=== PATIENT | female | born 1950 | race Caucasian/White ===

== ENCOUNTER → 2016-05-15 | Outpatient (CLI) | payer OTHER ==
--- NOTE | 2016-05-15 12:07 | US ---
Ultrasound of the Abdomen Limited History: Chronic hepatitis C, prior cholecystectomy. Comparison: Ultrasound June 2012 Findings: Bilious system: Gallbladder surgically absent. Common bile duct is 3 mm in diameter which is normal. Liver: Homogeneous in echogenicity without definite focal lesions and measures 17 cm in length. Renal: Right kidney measures 9.6 x 6.1 x 5.2 cm without hydronephrosis. In the medial cortex of the right kidney there 2 ovoid hypoechoic possible lesions which appear new o ne measuring 1.9 x 1.9-1.1 cm and a second measuring 2.1 x 1.4 x 1.6 CM, both in the mid pole region. Pancreas: Homogeneous without peripancreatic fluid. Aorta: Visualized upper abdominal aorta demonstrates no aneurysm. Impression: 1. Mild hepatomegaly without hepatic masses, hepatomegaly, or ascites. 2. Prior cholecystectomy without biliary ductal dilation. 3. Questionable right renal masses measuring up to 2.1 cm. New since previous study. Recommend CT abd omen, renal protocol, for further evaluation.
== END ==
LOC: CIMAGING 10:49
PROVIDERS: ATTEND Internal Medicine
DX: N28.9 Disorder of kidney and ureter, unspecified (principal); B18.2 Chronic viral hepatitis C; Z90.49 Acquired absence of other specified parts of digestive tract
CPT/HCPCS: 76705-PO

== ENCOUNTER → 2016-05-29 | Outpatient (CLI) | payer OTHER ==
[~2016-05-29] MED LIST: IOPAMIDOL (ISOVUE 370) 100 ML BTL IV ONE
--- NOTE | 2016-05-29 17:02 | CT ---
CT Abdomen (Without and With Contrast) History: Possible right renal mass on recent ultrasound. COMPARISON: Ultrasound May 15, 2016. Technique: Spiral images were obtained through the abdomen without contrast for renal stone evaluati on. 90 mL of Isovue-300 IV contrast were administered. Multiphase was obtained through the abdomen wi thout compression. Images were reconstructed in multiple planes for CT urogram imaging. Volume rende ring was also performed. Dose reduction techniques were utilized. Findings: On the noncontrast images, there is no evidence of calculus projected over the kidneys or a long the expected path of the ureters. With IV contrast administration, there is evidence of renal cortical scarring involving both kidneys, especially the upper pole medial cortex of both kidneys with lobulated contour and cortical thinning . No evidence of renal masses or urinary tract obstruction. No perinephric fluid or nephrolithiasis. Proximal ureters demonstrate no distention or obstruction. Surgical clips in the gallbladder fossa from prior cholecystectomy. No biliary ductal dilation. In th e right lobe of the liver laterally, there is a benign-appearing 10-mm fat density lesion. No suspici ous solid hepatic lesions or hepatomegaly. No splenomegaly. Small hiatal hernia. No adrenal enlargeme nt. No aortic aneurysm or dissection. Moderate stool throughout the colon, consistent with constipation. No small bowel or colonic obstruct ion. No evidence of peripancreatic fluid. No significant adenopathy. Multilevel severe degenerative disk disease from T10-T11 through L5-S1 with degenerative anterolisthe sis at L4-L5 and multilevel moderate to severe facet arthropathy resulting in moderate to severe cent ral canal stenosis at L3-L4 and L4-L5. IMPRESSION: 1. Bilateral kidneys demonstrate multifocal cortical scarring in the upper pole regions, which corres pond to the previous ultrasound finding. No nephrolithiasis, solid renal masses, perinephric fluid, o r urinary tract obstruction. 2. Prior cholecystectomy. 3. Small hiatal hernia. 4. Benign fat density 1-cm hepatic lesion without suspicious hepatic masses. 5. Constipation. 6. Degenerative lumbar spine as described above.
== END ==
LOC: CIMAGING 15:13
PROVIDERS: ATTEND Internal Medicine
DX: N28.9 Disorder of kidney and ureter, unspecified (principal); K44.9 Diaphragmatic hernia without obstruction or gangrene
CPT/HCPCS: 74170-PO; Q9967

== ENCOUNTER 2016-06-05 13:31 | Day surgery (SDC) | payer OTHER ==
[2016-06-05] MEDS ORDERED: TRIAMCINOLONE ACETONIDE 200 MG/5 ML MDV IM ONE (15:22)
[2016-06-05] MEDS ORDERED: IOPAMIDOL (ISOVUE-M 300) 15 ML VIAL IV ONE (15:23)
--- NOTE | 2016-06-05 16:58 | IR ---
Lumbar epidural steroid injection History: Obesity, lumbar spondylosis, low back pain with radiculopathy down the right leg. The patien t has benefited from previous epidural injections, most recently performed March 20, 2016. Consent: Risks and benefits of the procedure were discussed in detail, and informed consent was obta ined. The patient accepted risks of lack of therapeutic benefit, internal bleeding, infection, and a ccidental dural puncture. Medications: Local anesthetic, only, at the preference of the patient (1% Xylocaine). Fluoroscopy time in minutes: 0.7. Estimated exposure in milligray: 63.1. Technique: With the patient prone, the low back was prepped and draped in sterile fashion. After loca l anesthetic, a long 18-gauge Touhy needle was inserted using right posterolateral oblique approach. The tip was advanced centrally using multiplanar fluoroscopic guidance. Epidural position of the tip of the needle was confirmed with 2 mL of Isovue-M 300. Spot images were obtained in multiple projecti ons before and following injection of 2 mL of Kenalog (80 mg) and 2.5 mL of preservative-free 1% Xylo elise. She tolerated the procedure well. After a brief observation here, the patient was allowed to l eave the hospital. Epidurogram: Eccentric rightward epidural contrast extends from L3 through L5. Features of chronic d isk degeneration and facet arthropathy are severe. Impression: Eccentric rightward lumbar epidural injection of long-acting steroid and rapid acting ane sthetic via L4-L5. - - - - - - - - - - - - - - - - - - - - - - - - - - - - - (PQRS measures: Current medications were listed in the medical record, including all known prescripti ons, [id number] medications, herbal medications, and nutritional supplements. Tobacco use: None . Prophylactic antibiotic:Unnecessary. VTE prophylaxis:Unnecessary.)
== END 2016-06-05 15:00 | disposition home or self-care (01) ==
LOC: FIMAGING 13:31
PROVIDERS: ATTEND Internal Medicine
PROC: 3E0S3BZ Introduction of Anesthetic Agent into Epidural Space, Percutaneous Approach (ICD-10-PCS; principal; 2016-06-05)
PROC: 3E0S329 Introduction of Other Anti-infective into Epidural Space, Percutaneous Approach (ICD-10-PCS; principal; 2016-06-05)
DX: M54.16 Radiculopathy, lumbar region (principal)
CPT/HCPCS: 0216T; 99152; J3301; Q9967

== ENCOUNTER → 2016-08-17 | Outpatient (CLI) | payer BC ==
[~2016-08-17] MED LIST changes: +DEPO METHYLPREDNISOLONE 40 MG/ML SDV ONE; +DEPO METHYLPREDNISOLONE 80 MG/ML SDV ONE; +LIDOCAINE 1% 30 ML SDV ONE; +NA BICARBONATE 50 MEQ/50 ML VIAL ONE; +ROPIVACAINE HCL 150 MG/30 ML INJ ONE
== END ==
LOC: FIMAGING 13:04
PROVIDERS: ATTEND Internal Medicine
PROC: 3E0U33Z Introduction of Anti-inflammatory into Joints, Percutaneous Approach (ICD-10-PCS; principal; 2016-08-17)
PROC: 3E0U3BZ Introduction of Anesthetic Agent into Joints, Percutaneous Approach (ICD-10-PCS; principal; 2016-08-17)
DX: M25.551 Pain in right hip (principal)
CPT/HCPCS: J1030; J1040; J2795; Q9967

== ENCOUNTER → 2017-04-03 | Day surgery (SDC) | payer OTHER ==
[~2017-04-03] MED LIST changes: -DEPO METHYLPREDNISOLONE 40 MG/ML SDV ONE; -DEPO METHYLPREDNISOLONE 80 MG/ML SDV ONE; -IOPAMIDOL (ISOVUE 370) 100 ML BTL IV ONE; +IOPAMIDOL (ISOVUE-M 300) 15 ML VIAL ONE; -LIDOCAINE 1% 30 ML SDV ONE; -NA BICARBONATE 50 MEQ/50 ML VIAL ONE; -ROPIVACAINE HCL 150 MG/30 ML INJ ONE; +TRIAMCINOLONE ACETONIDE 200 MG/5 ML MDV IM ONE
== END | disposition home or self-care (01) ==
LOC: FIMAGING 12:30
PROVIDERS: ATTEND Internal Medicine
DX: M54.16 Radiculopathy, lumbar region (principal); K44.9 Diaphragmatic hernia without obstruction or gangrene; Z96.659 Presence of unspecified artificial knee joint
CPT/HCPCS: J3301; Q9967

== ENCOUNTER 2017-09-11 12:02 | Day surgery (SDC) | payer OTHER ==
[2017-09-11] MEDS ORDERED: MEPERIDINE 25 MG/ML SYR IVP PRN (12:37)
[2017-09-11] MEDS ORDERED: FLUMAZENIL 0.5 MG/5 ML MDV IVP PRN (12:37)
[2017-09-11] MEDS ORDERED: NALOXONE HCL 0.4 MG/ML INJ IVP PRN (12:37)
[2017-09-11] MEDS ORDERED: MIDAZOLAM 2 MG/2 ML VIAL IVP PRN (12:37)
[2017-09-11] MEDS ORDERED: fentaNYL 100 MCG/2 ML INJ IVP PRN (12:37)
[2017-09-11] MEDS ORDERED: fentaNYL 100 MCG/2 ML INJ ONE (12:43)
[2017-09-11] MEDS ORDERED: FLUMAZENIL 0.5 MG/5 ML MDV IVP ONE (12:43)
[2017-09-11] MEDS ORDERED: MIDAZOLAM 2 MG/2 ML VIAL ONE (12:43)
[2017-09-11] MEDS ORDERED: NALOXONE HCL 0.4 MG/ML INJ ONE (12:43)
[2017-09-11] MEDS ORDERED: NS 1,000 ML IV SCH (12:45)
--- NOTE | 2017-09-11 14:13 | PDGENHP ---
History & Physical Chief Complaint: RECURRENT LBP History of Present Illness: SAME LOCATION, WORSENING DEGREE OF PAIN. Pertinent Past, Social, Family History: HEMORROIDECTOMY, BILATERAL TOTAL KNEE REPLACEMENT, GB, RT ANKLE. Relevant Physical Exam: BILATERAL LEG PAIN, R>L, LOWER BACK TO HIP, TO FRONT OF RT LEG DOWN TO FOOT. Cardiorespiratory Assessment: RRR, CTA
--- NOTE | 2017-09-11 14:14 | PDPROPOC ---
Sedation Plan of Care Sedation Plan of Care: vital signs stable, mental status noted, patient educated of risks, benefits, alternatives, patient can tolerate sedation ASA Classification: ASA 2 Planned drugs: fentanyl, midazolam Mallampati Score: Class 1 Mallampati Reference Image: Patient passed 3-3-2 rule?: Yes
[2017-09-11] MEDS ORDERED: IOPAMIDOL (ISOVUE-M 300) 15 ML VIAL ONE (14:41)
[2017-09-11] MEDS ORDERED: LIDOCAINE 1% 300 MG/30 ML SDV ONE (14:41)
[2017-09-11] MEDS ORDERED: TRIAMCINOLONE ACETONIDE 200 MG/5 ML MDV IM ONE (14:41)
[2017-09-11] MEDS ORDERED: ONDANSETRON 4 MG/2 ML VIAL IVP PRN (15:04)
--- NOTE | 2017-09-11 15:06 | PDRADPN ---
Radiology Procedure Note Date of Procedure: 09/11/17 Radiologist: Tia Smiley Anesthesia: IV Sedation Pre-op Diagnosis: back pain Post-op Diagnosis: same Indication: recurrent pain Procedure: L3-4 DACIA Inf/Abcess present in the surg proc area at time of surgery?: No Complications: none
[2017-09-11 16:18] VITALS: BP 121/69
== END 2017-09-11 16:15 | disposition home or self-care (01) ==
LOC: FIMAGING 12:02
PROVIDERS: ATTEND Physical Medicine & Rehabilitation
DX: M54.16 Radiculopathy, lumbar region (principal); Z96.653 Presence of artificial knee joint, bilateral
CPT/HCPCS: J2250; J2310; J3010; J3301; Q9967

== ENCOUNTER → 2017-10-03 | Outpatient (CLI) | payer OTHER | LOC: FIMAGING 14:20 | PROVIDERS: ATTEND Physical Medicine & Rehabilitation | DX: M51.36 Other intervertebral disc degeneration, lumbar region (principal); M43.16 Spondylolisthesis, lumbar region; M99.73 Connective tissue and disc stenosis of intervertebral foramina of lumbar region; M48.56XA Collapsed vertebra, not elsewhere classified, lumbar region, initial encounter for fracture ==

== ENCOUNTER 2017-10-08 22:31 | Inpatient (IN) | payer OTHER ==
[2017-10-08] MEDS ORDERED: ONDANSETRON 4 MG/2 ML VIAL IVP ONE (23:47)
--- NOTE | 2017-10-08 23:52 | EDPHY ---
General - History Smoking Status: Former smoker Time Seen by Provider: 10/08/17 23:48 Narrative: CHIEF COMPLAINT: Back pain HISTORY OF PRESENT ILLNESS: Patient presents with complaints of back pain. She reports lumbar back pain. This has been present for many years, but it acutely worsened laterally. She says that she has lumbar pain with radiating pain to the legs. This was primarily on the right side until Sunday. She was doing housework when "it got bad really quick." She refers to pain lumbar spine. She did not fall or strike her back. She now feels severe pain in the low back that is refractory to her hydrocodone medication. She has been unable to walk due to pain. She reports weakness in both legs. She reports tingling and numbness and "burning pain" down of both legs symmetrically to the ankles. She denies any saddle anesthesia. She denies incontinence of bowel or bladder as she denies retention of bowel or bladder. No fever. She denies IV drug use. She says her last epidural injection was several weeks ago. She was seen by a neurosurgeon today, Dr. Lira. She had a recent MRI lumbar spine on October 03. No other associated complaints or modifying factors. REVIEW OF SYSTEMS: Ten systems reviewed and are negative unless otherwise noted in the HPI PCP: Dr. Poole SPECIALISTS: Dr. Erickson, orthopedics Dr. Wright, NILSA PAST MEDICAL HISTORY: Lumbar stenosis, chronic back pain, arthritis, hypertension, cholecystitis PAST SURGICAL HISTORY: Bilateral knee replacements, left ankle surgery, cholecystectomy, tonsillectomy , hemorrhoidectomy SOCIAL HISTORY: Never smoker. No drug or alcohol use. Retired FAMILY HISTORY: Noncontributory EXAMINATION General Appearance: Alert, no distress. Lying supine. Well-developed well- nourished. Head: normocephalic, atraumatic Eyes: Pupils equal and round, no conjunctival pallor or injection ENT, Mouth: Mucous membranes moist Neck: Normal inspection, supple, non-tender Respiratory: Lungs are clear to auscultation Cardiovascular: Regular rate and rhythm. No murmur Gastrointestinal: Obese Abdomen is soft and nontender Back: Tenderness of the lumbar spine without any crepitus, deformity or fluctuance. Unable to range due to pain. Neurological: GCS 15. A&O, nonfocal, patellar reflexes symmetric at 2+. There is weakness of the knees and ankles symmetrically a 4-5. Sensory is symmetric in lower extremities with reported paresthesia on exam. Skin: Warm and dry, no rash. No petechiae or purpura Extremities: Nontender, no pedal edema Psychiatric: Mood and affect normal DIFFERENTIAL DIAGNOSES: Including but not limited to acute cord compression, cauda equina, severe lumbar stenosis, lumbar radiculopathy MDM: 11:50 p.m. Acute worsening of chronic lumbar pain with now bilateral lumbar radiculopathy that compressive paresthesia and mild weakness. I do not appreciate Anesthesia. I do not appreciate any evidence of acute cord compression, but she does have 4/5 weakness symmetric. While I feel that acute cord compression is unlikely in this patient, she does have a significant change in her symptoms over the weekend. This is after the most recent MRI. It is very soon to repeat the MRI, but given the timing of the symptoms, I feel this is necessary to rule out acute cord compression. I have discussed with Dr. Baig and he is in agreement with this plan. I have ordered pain medication laboratory studies as well. 12:15 a.m. At this time I have discussed the case further with Dr. Baig. He will assume care the patient. Please see his note for final disposition further care. SUPERVISION: Patient was evaluated and examined in conjunction with my secondary supervising physician as documented. We have both examined the patient. (Andrew Olvera) 0005 care assumed by me from AUTUMN Olvera pending MRI of the L-spine. 0145 MRI results show new bilateral insufficiency fractures of the sacral S2 right greater than left these are nondisplaced. No changes in the chronic L4-5 stenosis or old L3 compression fracture. These are interpreted by Dr. Baker. I have discussed with Dr. Deleon, he will consult on the patient in the hospital. I have also discussed with the hospitalist, Herbert. He will admit for pain control and neurosurgical consultation. (Saad Baig) - Objective Vital Signs: Initial Vital Signs Temperature (C) 36.5 C 10/08/17 22:37 Heart Rate 86 10/08/17 22:37 Respiratory Rate 18 10/08/17 22:37 Blood Pressure 154/91 H 10/08/17 22:37 O2 Sat (%) 93 10/08/17 22:37 O2 Delivery Mode Nasal Cannula O2 (L/minute) 2 Allergies/Adverse Reactions: No Known Allergies Allergy (Verified 10/08/17 22:41) Home Medications: Medication Instructions Recorded Omeprazole Magnesium [Prilosec Otc] 20 mg PO 09/30/12 GABAPENTIN 03/22/15 Lisinopril 03/22/15 Vicodin 5-300 mg Tablet 05/26/16 Acyclovir 03/30/17 Excedrin Tablet (*) 03/30/17 Flexeril 03/30/17 IBUPROFEN 03/30/17 Oxycontin 10/08/17 Laboratory Results: Laboratory Results 10/09/17 00:05 10/09/17 00:05 10/09/17 10/09/17 10/09/17 00:05 00:05 00:05 WBC 6.86 10^3/uL 10^3/uL (3.80-9.50) RBC 3.59 10^6/uL L 10^6/uL (4.18-5.33) Hgb 10.4 g/dL L g/dL (12.6-16.3) Hct 32.1 % L % (38.0-47.0) MCV 89.4 fL fL (81.5-99.8) MCH 29.0 pg pg (27.9-34.1) MCHC 32.4 g/dL g/dL (32.4-36.7) RDW 15.5 % H % (11.5-15.2) Plt Count 242 10^3/uL 10^3/uL (150-400) MPV 8.2 fL L fL (8.7-11.7) Neut % (Auto) 51.4 % % (39.3-74.2) Lymph % (Auto) 30.6 % % (15.0-45.0) Davison % (Auto) 9.2 % % (4.5-13.0) Eos % (Auto) 7.9 % H % (0.6-7.6) Baso % (Auto) 0.6 % % (0.3-1.7) Nucleat RBC Rel Count 0.0 % % (0.0-0.2) Absolute Neuts (auto) 3.53 10^3/uL 10^3/uL (1.70-6.50) Absolute Lymphs (auto) 2.10 10^3/uL 10^3/uL (1.00-3.00) Absolute Monos (auto) 0.63 10^3/uL 10^3/uL (0.30-0.80) Absolute Eos (auto) 0.54 10^3/uL H 10^3/uL (0.03-0.40) Absolute Basos (auto) 0.04 10^3/uL 10^3/uL (0.02-0.10) Absolute Nucleated RBC 0.00 10^3/uL 10^3/uL (0-0.01) Immature Gran % 0.3 % % (0.0-1.1) Immature Gran # 0.02 10^3/uL 10^3/uL (0.00-0.10) Sodium 132 mEq/L L mEq/L (135-145) Potassium 3.8 mEq/L mEq/L (3.3-5.0) Chloride 98 mEq/L mEq/L (97-110) Carbon Dioxide 23 mEq/l mEq/l (22-31) Anion Gap 11 mEq/L mEq/L (8-16) BUN 16 mg/dL mg/dL (7-23) Creatinine 0.6 mg/dL mg/dL (0.6-1.0) Estimated GFR > 60 Glucose 93 mg/dL mg/dL (70-100) Calcium 9.6 mg/dL mg/dL (8.5-10.4) 25-OH Vitamin D Total Pending Medications Given: Discontinued Medications Morphine Sulfate (Morphine) 4 mg IVP EDNOW ONE Stop: 10/08/17 23:48 Last Admin: 10/09/17 00:15 Dose: 4 mg Morphine Sulfate (Morphine) 4 mg IVP EDNOW ONE Stop: 10/09/17 01:58 Last Admin: 10/09/17 02:12 Dose: 4 mg Ondansetron HCl (Zofran) 4 mg IVP EDNOW ONE Stop: 10/08/17 23:48 Last Admin: 10/09/17 00:15 Dose: 4 mg Departure - Departure Disposition: [facility] Clinical Impression: Lumbar radiculopathy, acute, Lumbar degenerative disc disease, Sacral fracture Chronic lumbar pain Qualifiers: Back pain laterality: midline Sciatica presence: with sciatica Sciatica laterality: bilateral sciatica Qualified Code(s): M54.41 - Lumbago with sciatica , right side Lumbar stenosis Qualifiers: Neurogenic claudication status: unspecified Qualified Code(s): M48.061 - Spinal stenosis, lumbar region without neurogenic claudication Condition: Fair
[2017-10-09 00:18] LABS: PLATELET COUNT 242 10^3/uL (150-400)
[2017-10-09] MEDS ORDERED: ONDANSETRON 4 MG/2 ML VIAL IVP PRN (01:47)
[2017-10-09] MEDS ORDERED: ACETAMINOPHEN 325 MG TAB PO PRN (01:47)
[2017-10-09] MEDS ORDERED: ONDANSETRON DISINTEGRATING 4 MG TAB PO PRN (01:47)
[2017-10-09] MEDS ORDERED: OXYCODONE/APAP 5/325 TAB PO ONE (01:48)
--- NOTE | 2017-10-09 02:18 | PDGENHP ---
History and Physical - Chief Complaint Back pain - History of Present Illness 67 yo F w/ chronic pain, fibromyalgia, and HTN presents with acute on chronic back pain. Patient states she has had pain above baseline since last . Then, last evening after waking up from a nap, the pain increased drastically. The pain is so severe she has difficulty walking. She notes radiation down bilateral legs to her ankles with burning and mild numbness involved. She denies federico weakness or loss of karishma/bladder control. Her pain is currently improved after morphine IV provided in the ED. CT scan in ED revealed sacral insufficiency fractures. History Information - Allergies/Home Medication List Allergies/Adverse Reactions: No Known Allergies Allergy (Verified 10/08/17 22:41) Home Medications: Omeprazole Magnesium [Prilosec Otc] 20 mg PO 09/30/12 [Last Taken 09/10/17] GABAPENTIN 03/22/15 [Last Taken 09/11/17] Lisinopril 03/22/15 [Last Taken 09/10/17] Vicodin 5-300 mg Tablet 05/26/16 [Last Taken 09/11/17] Acyclovir 03/30/17 [Last Taken 08/12/17] Excedrin Tablet (*) 03/30/17 [Last Taken 09/11/17] Flexeril 03/30/17 [Last Taken 09/10/17] IBUPROFEN 03/30/17 [Last Taken 09/11/17] Oxycontin 10/08/17 [Last Taken Unknown] I have personally reviewed and updated: family history, medical history - Past Medical History fibromyalgia, hypertension Additional medical history: Chronic pain - Surgical History Additional surgical history: Bilateral TKAs - Family History Positive for: cancer - Social History Smoking Status: Former smoker Review of Systems Review of Systems: ROS: 10pt was reviewed & negative except for what was stated in HPI & below Physical Exam Physical Exam: Temp Pulse Resp BP Pulse Ox 36.5 C 90 16 145/92 H 98 10/08/17 22:37 10/09/17 00:32 10/09/17 00:32 10/09/17 00:32 10/09/17 00:32 Constitutional: obese, uncomfortable Eyes: PERRL, EOMI Ears, Nose, Mouth, Throat: moist mucous membranes, no oral mucosal ulcers Cardiovascular: regular rate and rhythym, no murmur, rub, or gallop Respiratory: no respiratory distress, clear to auscultation Gastrointestinal: normoactive bowel sounds, soft, non-tender abdomen Skin: warm, normal color Musculoskeletal: full muscle strength, no muscle tenderness Neurologic: AAOx3, CN II-XII Intact, No weakness Psychiatric: interacting appropriately, not anxious Lab Data & Imaging Review 10/09/17 00:05 10/09/17 00:05 WBC 6.86 10^3/uL (3.80-9.50) 10/09/17 00:05 RBC 3.59 10^6/uL (4.18-5.33) L 10/09/17 00:05 Hgb 10.4 g/dL (12.6-16.3) L 10/09/17 00:05 Hct 32.1 % (38.0-47.0) L 10/09/17 00:05 MCV 89.4 fL (81.5-99.8) 10/09/17 00:05 MCH 29.0 pg (27.9-34.1) 10/09/17 00:05 MCHC 32.4 g/dL (32.4-36.7) 10/09/17 00:05 RDW 15.5 % (11.5-15.2) H 10/09/17 00:05 Plt Count 242 10^3/uL (150-400) 10/09/17 00:05 MPV 8.2 fL (8.7-11.7) L 10/09/17 00:05 Neut % (Auto) 51.4 % (39.3-74.2) 10/09/17 00:05 Lymph % (Auto) 30.6 % (15.0-45.0) 10/09/17 00:05 [place] % (Auto) 9.2 % (4.5-13.0) 10/09/17 00:05 Eos % (Auto) 7.9 % (0.6-7.6) H 10/09/17 00:05 Baso % (Auto) 0.6 % (0.3-1.7) 10/09/17 00:05 Nucleat RBC Rel Count 0.0 % (0.0-0.2) 10/09/17 00:05 Absolute Neuts (auto) 3.53 10^3/uL (1.70-6.50) 10/09/17 00:05 Absolute Lymphs (auto) 2.10 10^3/uL (1.00-3.00) 10/09/17 00:05 Absolute Monos (auto) 0.63 10^3/uL (0.30-0.80) 10/09/17 00:05 Absolute Eos (auto) 0.54 10^3/uL (0.03-0.40) H 10/09/17 00:05 Absolute Basos (auto) 0.04 10^3/uL (0.02-0.10) 10/09/17 00:05 Absolute Nucleated RBC 0.00 10^3/uL (0-0.01) 10/09/17 00:05 Immature Gran % 0.3 % (0.0-1.1) 10/09/17 00:05 Immature Gran # 0.02 10^3/uL (0.00-0.10) 10/09/17 00:05 Sodium 132 mEq/L (135-145) L 10/09/17 00:05 Potassium 3.8 mEq/L (3.3-5.0) 10/09/17 00:05 Chloride 98 mEq/L (97-110) 10/09/17 00:05 Carbon Dioxide 23 mEq/l (22-31) 10/09/17 00:05 Anion Gap 11 mEq/L (8-16) 10/09/17 00:05 BUN 16 mg/dL (7-23) 10/09/17 00:05 Creatinine 0.6 mg/dL (0.6-1.0) 10/09/17 00:05 Estimated GFR > 60 10/09/17 00:05 Glucose 93 mg/dL (70-100) 10/09/17 00:05 Calcium 9.6 mg/dL (8.5-10.4) 10/09/17 00:05 Imaging Review: MRI lumbar spine Prelim: bilat insuff fx sacrum s2 new, ? suble fx l ilium at si multil level deg same from recent Dr Baig 0135 Assessment & Plan Assessment: 67 yo F w/ chronic pain, FM, and HTN presents with acute on chronic back pain. Plan: 1. Acute on chronic back pain with chronic opiate use - Patient reports increased pain over last several days with dramatic increase on day of admission. MRI reveals new sacral insufficiency fractures of unclear etiology; patient denies trauma. At baseline she uses hydrocodone/APAP 20/650 q4-6h, gabapentin 600 q4-6h, and oxycontin 15 mg qHS (She has not had this for the last 2 weeks). - Admit for pain control - morphine IV PRN overnight for acute pain control - Needs med reconciliation - Neurosurgery consulted, appreciate assistance - May benefit from IR consult as well - Will check Vitamin D; last DEXA in 2012 notable for osteopenia, would recommend repeat as outpatient - Case discussed with Dr. Baig 2. HTN - Continue home meds Diet - Regular Code - Full Ppx - SCDs Dispo - Admit under observation status
[2017-10-09] MEDS ORDERED: MELATONIN 3 MG TAB PO PRN (02:25)
[2017-10-09] MEDS ORDERED: GABAPENTIN 300 MG CAP PO PRN (02:25)
[2017-10-09] MEDS: oxyCODONE IR 5 MG TAB PO PRN ×4 (04:49→17:35)
--- NOTE | 2017-10-09 08:22 | GCON ---
[f rep st] CONSULTATION CONSULTATION HISTORY AND PHYSICAL Patient seen in room [address] Kilpatrick at 6 a.m., seen by myself at 7:15 a.m. CHIEF COMPLAINT: Back pain. HISTORY OF PRESENT ILLNESS: The patient is a 67-year-old female with a history of chronic pain, fibromyalgia, and hypertension that presented to the emergency department with acute on chronic back pain. She had imaging done, which showed stenosis at L4-5. She has had a history of multiple injections at this level. She had imaging also that showed an S2 sacral insufficiency fracture. The patient states that she had the pain above her baseline since this last . Last evening, she was waking up from a nap. The pain had increased dramatically. The pain was so severe that she had difficulty with walking. She noted pain radiating down both legs to her ankles with some burning and mild numbness involved. She denies any loss of bowel or bladder control. No numbness in her groin. No saddle anesthesia. No changes in her bowel or bladder. She denies any upper extremity complaints. No shortness of breath. No chest pain. No abdominal complaints. No nausea, vomiting, or diarrhea. PAST MEDICAL HISTORY: Fibromyalgia, hypertension, chronic pain. PAST SURGICAL HISTORY: Bilateral total knee arthroplasties. MEDICATIONS: Prior to admission, omeprazole, gabapentin, lisinopril, Vicodin, acyclovir, Excedrin, Flexeril, ibuprofen, and OxyContin. ALLERGIES: No known drug allergies. FAMILY HISTORY: Positive for cancer. SOCIAL HISTORY: Patient is a former smoker. She is , lives in the [place] area. IMMUNIZATIONS: Up to date. TRAVEL: No recent travel. REVIEW OF SYSTEMS: Complete 10-point review of systems was reviewed and otherwise noted in HPI. PHYSICAL EXAMINATION: GENERAL: This is an awake, alert, oriented female. VITAL SIGNS: Most recent, blood pressure 139/94 with a MAP of 109, 99 heart rate, 17 respiratory rate, 96% on 2 L nasal cannula, temperature 37.1. HEENT: Head is normocephalic, atraumatic. Pupils are equal, round, reactive to light. EOMI is intact. Full visual camp by confrontation. Ears are patent. Nose is patent. NECK: Soft and supple midline tenderness. Full range of motion in flexion, extension, lateral bending, rotation. RESPIRATORY AND CARDIAC: Deferred. ABDOMEN: Soft, nontender. No peritoneal signs. AND RECTAL: Deferred. NEURO: Patient is awake, alert, oriented to name, place, location, date, time, and situation. Memory is intact to immediate, past, and current events. SPEECH: No aphasia, dysarthria, dysphonia. Cranial nerves 2-12 grossly intact. MOTOR: Patient has 5/5 strength in all muscle groups of bilateral upper and lower extremities to include deltoids, biceps, triceps, brachioradialis, wrist flexion, extensors, cap coverer, intrinsic fingers, iliopsoas, quadriceps, hamstring, plantar flexion, dorsiflexion, EHL testing with the exception of bilateral quad and hamstring at 5-/5 with poor effort due to pain. Sensation is grossly intact to light touch throughout all dermatome distributions of the lower extremities. Negative straight leg raise. Negative RACHEL test. Reflexes of biceps, triceps, brachioradialis, knee jerk and ankle jerk 2+/4. Toes are downgoing bilaterally. Bach's negative. Babinski negative. No evidence of clonus. MEDICAL DECISION MAKING, DIAGNOSTIC STUDIES, LABORATORY TESTS: Labs obtained on 10/09/2017 shows a white count of 6.86 with an H and H of 10.4 and 32.1 with a platelet count of 242. Chemistries on 10/09/2017, sodium 132, potassium 3.8, chloride 98, CO2 23, BUN 16, creatinine 0.6, and glucose of 93. MRI of the lumbar spine dated 10/09/2017 at 00:54 a.m. shows a bilateral insufficiency fracture of S2, subtle fracture left ilium, multiple-level degenerative disK changes noted. Patient does have some stenosis noted at the L4-5 level as well. IMPRESSION: 1. Back pain. 2. History of chronic pain with fibromyalgia. 3. Bilateral sacral insufficiency fracture S2, L4-5 stenosis. PLAN AND DISCUSSION: The patient is a 67-year-old female who has a history of chronic pain. She has known stenosis at L4-5 that she states she has had multiple injections to this area. She developed some acute lower back pain. Imaging was performed, which showed bilateral S2 sacral insufficiency fractures noted. She has continued stenosis at L4-5. She has had these injections in the back that have not given her lasting relief. She did have discussion with Dr. Lira earlier this week regarding the stenosis at L4-5. In the interim, she developed this worsening pain. She was seen both by myself and Dr. Kilpatrick this a.m. and recommendations for S2 sacral plasty with IR was given. The patient is in agreement with this. She may need further evaluation. She does have bilateral hip pain and she requested bilateral hip injections as well. We will defer this to Internal Medicine and orthopedics for evaluation. The patient did state that she works with Dr. Cadena. She could see Dr. Cadena for these in order for these hip injections as well. She is in agreement that the sacral plasty is primary at this time. We will order this with Interventional Radiology and follow up with her after this is completed. All questions and concerns were answered. Patient understands and agrees. NEUROSURGERY STAFF: I have seen and evaluated the patient and I agree with the above note by the PA. Hermilo Kilpatrick MD /[id number]/MODL MTDD
[2017-10-09] MEDS ORDERED: NON-FORMULARY NEW DRUG (Acyclovir [Acyclovir] 800 MG) PO PRN (09:50)
--- NOTE | 2017-10-09 09:52 | HOSPPROG ---
Hospitalist Progress Note Assessment/Plan: 67 yo F w/ chronic pain, FM, and HTN presents with acute on chronic back pain. Today is my first encounter w the patient, chart reviewed. * Acute on chronic back pain -due to sacral insufficiency fractures -patient did not sustain a fall -appreciate neurosurgery seeing her -last DEXA scan show osteopenia in 2012/ recommend a repeat one for f/u care -she has stenosis at L4-L5 contributing to her pain *sacral insufficiency fx -sacro-plasty was to be today, but now scheduled for tomorrow -will make NPO after midnight * HTN - Continue home meds *Plan: patient will require sacroplasty to help manage her pain which will be done tomorrow. She will require another midnight stay for further evaluation and treatment. She is unable to walk without assistance. Subjective: Tanika has no pain while at rest. Has increase pain with sitting and walking. Objective: Vital Signs Temp Pulse Resp BP Pulse Ox 37.1 C 99 17 139/94 H 96 10/09/17 03:10 10/09/17 03:10 10/09/17 03:10 10/09/17 03:10 10/09/17 03:10 10/08/17 10/09/17 10/10/17 05:59 05:59 05:59 Intake Total 150 Output Total 400 Balance -250 - Physical Exam Constitutional: appears nourished, uncomfortable Eyes: PERRL Ears, Nose, Mouth, Throat: hearing normal Cardiovascular: regular rate and rhythym Respiratory: no respiratory distress Gastrointestinal: normoactive bowel sounds Skin: warm Musculoskeletal: generalized weakness Neurologic: AAOx3 Psychiatric: interacting appropriately ICD10 Worksheet Patient Problems: Problems Problem Status Onset Chronic lumbar pain Acute Lumbar degenerative disc disease Acute Lumbar radiculopathy, acute Acute Lumbar stenosis Acute Sacral fracture Acute
[2017-10-09] MEDS ORDERED: ACYCLOVIR 400 MG TAB PO PRN (09:57)
[2017-10-09] MEDS ORDERED: NS 500 ML IV SCH (10:30)
[2017-10-09 10:51] LABS: INR 1.07 (0.83-1.16); PROTIME(PATIENT) 14.1 SEC (12.0-15.0)
[2017-10-09] MEDS: GABAPENTIN 300 MG CAP PO SCH ×3 (11:45→20:55)
--- NOTE | 2017-10-09 12:37 | ASMTCMCOM ---
CM Note CM Note Notes: Patient admitted for acute on chronic back pain with chronic opiate use. She has been seen by neurosurgery who recommend a S2 sacralplasty with IR. NS will see her again after this procedure. Patient lives independently. We can have PT/OT eval if necessary, and Case Management will assist with any discharge needs. Date Signed: 10/09/2017 12:36 PM Electronically Signed By:Jovita Redman RN
[2017-10-09] MEDS: LISINOPRIL/HCTZ 10/12.5 MG 1 EA TAB PO SCH (20:58)
[2017-10-09] MEDS: PANTOPRAZOLE SODIUM 40 MG TAB PO SCH (20:59)
[2017-10-09] MEDS ORDERED: NON-FORMULARY NEW DRUG (Omeprazole Magnesium [Prilosec Otc] 20 MG) PO SCH (21:00)
[2017-10-09] MEDS ORDERED: oxyCODONE CR 15 MG TAB PO SCH (21:00)
[2017-10-10] MEDS: oxyCODONE IR 5 MG TAB PO PRN ×3 (00:42→12:33)
[2017-10-10] MEDS: GABAPENTIN 300 MG CAP PO SCH ×4 (05:45→21:46)
[2017-10-10] MEDS ORDERED: PROPOFOL 200 MG/20 ML VIAL ONE (06:37)
[2017-10-10] MEDS ORDERED: PROPOFOL/EMULSION 500 MG/50 ML BOTTLE IV ONE (06:37)
[2017-10-10] MEDS ORDERED: SUCCINYLCHOLINE CHLORIDE 200 MG/10 ML VIAL ONE (06:46)
[2017-10-10] MEDS ORDERED: ROCURONIUM 100 MG/10 ML VIAL ONE (06:46)
--- NOTE | 2017-10-10 07:16 | NEUSURGPN ---
Assessment/Plan: Assessment: 67 yo female with lower back pain and BLE pain. Pt has bilateral S2 sacral insuff fractures Plan: -sacral insuff fractures: plan for IR to do sacroplasty today -pt ready for procedure -pt with L4/5 stenosis as well -PT/OT ordered-CPM -continue with current pain management -warning signs given -call with any questions or concerns -pt understands and agrees Subjective: Awake and alert. NAD. NPO now. Pt to go get IR procedure today. No marley/neck/ chest/abd or gu complaints. No f/c/n/v/d Objective: AAO x 3, PERRLA/EOMI no droop CN 2-12 grossly intact +lt touch 5/5 BUE/BLE = Neuro Check Frequency: per routine Urinary Catheter in Place: No - Physician Discussed Patient with : [facility] Physical Exam - Vitals, I&O, Labs I and O 10/09/17 10/10/17 10/11/17 05:59 05:59 05:59 Intake Total 150 Output Total 400 850 Balance -250 -850 Weight 94.1 kg Intake: Oral (ml) 150 Output: Urine (ml) 400 850 Bedside Commode 550 Toilet 400 300 Other: Number of Voids 3 Bedside Commode 4 Toilet 1 1 Vital Signs Temp Pulse Resp BP Pulse Ox 36.5 C 80 17 128/82 H 98 10/10/17 00:00 10/10/17 00:00 10/10/17 00:00 10/10/17 00:00 10/10/17 00:00 ICD10 Worksheet Patient Problems: Problems Problem Status Onset Chronic lumbar pain Acute Lumbar degenerative disc disease Acute Lumbar radiculopathy, acute Acute Lumbar stenosis Acute Sacral fracture Acute
[2017-10-10] MEDS ORDERED: DEXAMETHASONE 10 MG/ML VIAL IVP ONE (08:30)
[2017-10-10] MEDS ORDERED: ceFAZolin 2 GM/SWFI 2 GM/20 ML SYR IVP ONE (08:30)
[2017-10-10] MEDS ORDERED: ceFAZolin 2 GM/DEXTROSE 100 ML IV ONE (08:30)
--- NOTE | 2017-10-10 08:54 | PDANEPAE ---
ANE Past Medical History - Cardiovascular History Hx Hypertension: Yes Hx Arrhythmias: No Hx Chest Pain: No Hx Coronary Artery / Peripheral Vascular Disease: No Hx CHF / Valvular Disease: No Hx Palpitations: No - Pulmonary History Hx COPD: No Hx Asthma/Reactive Airway Disease: No Hx Recent Upper Respiratory Infection: No Hx Oxygen in Use at Home: No Hx Sleep Apnea: No Sleep Apnea Screening Result - Last Documented: Positive - Neurologic History Hx Cerebrovascular Accident: No Hx Seizures: No Hx Dementia: No Neurologic History Comment: NEUROPATHY lower legs and fingers - Endocrine History Hx Diabetes: Yes - Renal History Hx Renal Disorders: No - Liver History Hx Hepatic Disorders: No Hepatic History Comment: mild scaring past hepatitis - Neurological & Psychiatric Hx Hx Neurological and Psychiatric Disorders: No - Cancer History Hx Cancer: No - Congenital Disorder History Hx Congenital Disorders: No - GI History Hx Gastrointestinal Disorders: Yes Gastrointestinal History Comment: GERD, hiatial hernia (no surgery) - Other Health History Other Health History: L -EPIs, FIBROMYALGIA, SPINAL STENOSIS, - Chronic Pain History Chronic Pain: Yes - Surgical History Prior Surgeries: HEMORROIDECTOMY, bilateral total knee replacement, gall bladder surgery, right ankle fracture, tonsils ANE Review of Systems Review of Systems: ANE Patient History - Allergies Allergies/Adverse Reactions: No Known Allergies Allergy (Verified 10/08/17 22:41) - Home Medications Home Medications: Omeprazole Magnesium [Prilosec Otc] 20 mg PO HS 09/30/12 [Last Taken 10/07/17] Gabapentin [Neurontin 300 MG (*)] 600 mg PO QID 03/22/15 [Last Taken 10/08/17 18 :00] Lisinopril/Hctz 10/12.5 mg [Zestoretic/Prinzide 10/12.5MG (*)] 1 ea PO HS [Last Taken 10/07/17] HYDROcodone/APAP 10/325 [[place] 10/325 (*)] 2 tab PO Q4-6PRN PRN 05/26/16 [Last Taken 10/08/17 18:00] Acetaminophen/ASA/Caffeine [Excedrin Tablet (*)] 1 each PO DAILY PRN 03/30/17 [ Last Taken 09/11/17] Acyclovir 800 mg PO DAILY PRN 03/30/17 [Last Taken 08/12/17] Cyclobenzaprine [Flexeril 10 MG (*)] 10 mg PO TID PRN 03/30/17 [Last Taken 09/10] Ibuprofen [Motrin (*)] 800 mg PO BID 03/30/17 [Last Taken 10/08/17 09:00] oxyCODONE CR [Oxycontin] 15 mg PO HS 10/08/17 [Last Taken 10/07/17] Cholecalciferol Vit D3 [Vitamin D3 (*)] 1,000 units PO DAILY 10/09/17 [Last Taken Unknown] Ferrous Sulfate [Ferrous Sulf 325 MG (*)] 325 mg PO DAILY 10/09/17 [Last Taken Unknown] Multivitamins [Multivitamin (*)] 1 each PO DAILY 10/09/17 [Last Taken Unknown] - NPO status NPO Since - Liquids (Date): 10/09/17 NPO Since - Liquids (Time): 23:55 NPO Since - Solids (Date): 10/09/17 NPO Since - Solids (Time): 19:00 - Smoking Hx Smoking Status: Former smoker - Family Anes Hx Family Hx Anesthesia Complications: none ANE Labs/Vital Signs - Labs Result Diagrams: 10/09/17 00:05 10/09/17 00:05 - Vital Signs Blood Pressure: 125/85 Heart Rate: 76 Respiratory Rate: 16 O2 Sat (%): 90 Height: 167.64 cm Weight: 94.1 kg ANE Physical Exam - Airway Mallampati Score: Class 2 - ASA Status ASA Status: III ANE Anesthesia Plan Anesthesia Plan: general endotracheal anesthesia, MAC
[2017-10-10] MEDS ORDERED: MIDAZOLAM 2 MG/2 ML VIAL ONE (08:57)
[2017-10-10] MEDS ORDERED: fentaNYL 100 MCG/2 ML INJ ONE (08:58)
--- NOTE | 2017-10-10 09:00 | HOSPPROG ---
Hospitalist Progress Note Assessment/Plan: 67 yo F w/ chronic pain, FM, and HTN presents with acute on chronic back pain. * Acute on chronic back pain -due to sacral insufficiency fractures -patient did not sustain a fall -appreciate neurosurgery seeing her -last DEXA scan show osteopenia in 2012/ recommend a repeat one for f/u care -she has stenosis at L4-L5 contributing to her pain *sacral insufficiency fx -sacro-plasty this morning & patient is feeling much better, saw her prior to her procedure and after. She was able to ambulate with assist * HTN - Continue home meds *Plan: Evaluate her tomorrow, she wants to go home. Lives alone and has cats she wants to return to. Will dc iv pain medications, resume her home medications , will stop long acting pain med since she stopped it 2 weeks ago. Will ask PT and OT to see. Subjective: Alysa is feeling much better after the procedure. Very hopeful. Objective: Vital Signs Temp Pulse Resp BP Pulse Ox 37.0 C 76 16 125/85 H 90 L 10/10/17 08:36 10/10/17 08:53 10/10/17 08:53 10/10/17 08:53 10/10/17 08:53 10/09/17 10/10/17 10/11/17 05:59 05:59 05:59 Intake Total 150 Output Total 400 850 Balance -250 -850 PT 14.1 SEC (12.0-15.0) 10/09/17 10:30 INR 1.07 (0.83-1.16) 10/09/17 10:30 - Physical Exam Constitutional: appears nourished, not in pain, obese Eyes: PERRL Ears, Nose, Mouth, Throat: hearing normal Cardiovascular: regular rate and rhythym Respiratory: no respiratory distress Gastrointestinal: normoactive bowel sounds Skin: warm Musculoskeletal: generalized weakness Neurologic: AAOx3 Psychiatric: interacting appropriately ICD10 Worksheet Patient Problems: Problems Problem Status Onset Chronic lumbar pain Acute Lumbar degenerative disc disease Acute Lumbar radiculopathy, acute Acute Lumbar stenosis Acute Sacral fracture Acute
[2017-10-10] MEDS ORDERED: LIDOCAINE 1% 300 MG/30 ML SDV ONE (09:08)
[2017-10-10] MEDS ORDERED: BUPIVACAINE 0.25% 30 ML SDV ONE (09:08)
--- NOTE | 2017-10-10 10:46 | PDMN ---
Medical Necessity Medical necessity: change to IP;los>2mn for acute on chronic back pain r/t sacral insufficiency fractures, with inability to ambulate w/o assistance; requires further eval and rx with sacroplasty 10/10/17, and pain management; comorbid FM, HTN; per order and progress note 10/09/17
[2017-10-10] MEDS ORDERED: LR 500 ML IV PRN (11:21)
[2017-10-10] MEDS ORDERED: NALOXONE HCL 0.4 MG/ML INJ IVP PRN (11:21)
[2017-10-10] MEDS ORDERED: fentaNYL 100 MCG/2 ML INJ IVP PRN (11:21)
[2017-10-10] MEDS ORDERED: DIAZEPAM 5 MG/ML 1 ML SYR IVP PRN (11:21)
[2017-10-10] MEDS ORDERED: PROMETHAZINE HCL 25 MG/ML INJ IVP PRN (11:21)
[2017-10-10] MEDS ORDERED: HYDROmorphONE/DILAUDID 1 MG/ML INJ IVP PRN (11:21)
--- NOTE | 2017-10-10 11:22 | POSTANESTH ---
Post Anesthetic Evaluation Cardiovascular Status: Normal, Stable Respiratory Status: Normal, Stable Level of Consciousness/Mental Status: Can Participate in Eval Pain Control: Adequate, Prn Tx Ordered Nausea/Vomiting Control: Adequate, Prn Tx Ordered Complications Possibly Related to Anesthesia: None Noted
--- NOTE | 2017-10-10 11:23 | PDRADPN ---
Radiology Procedure Note Date of Procedure: 10/10/17 Radiologist: Tia Smiley Anesthesia: GET(General Endotracheal) Pre-op Diagnosis: SACRAL FRACTURES Post-op Diagnosis: SAME Indication: SEVERE PAIN Procedure: BILATERAL CT GUIDED SACROPLASTY Finding(s): 6CC/SIDE ADMINISTERED WITH GOOD DISTRIBUTION Inf/Abcess present in the surg proc area at time of surgery?: No Complications: NONE IMMEDIATELY
--- NOTE | 2017-10-10 11:25 | PDRADPN ---
Radiology Procedure Note Date of Procedure: 10/10/17 Radiologist: Bong Odonnell Egg Tester(s): Tia Smiley Anesthesia: GET(General Endotracheal) Pre-op Diagnosis: sacral insufficiency fractures Post-op Diagnosis: same Indication: pain Procedure: bilateral sacroplasty Finding(s): 7mL cement implanted to each side via 11G delivery needle. Good right fracture filling, no extravasation. Inf/Abcess present in the surg proc area at time of surgery?: No EBL: Minimal Complications: none apparent
[2017-10-10] MEDS: FERROUS SULFATE 325 MG TAB PO SCH (13:09)
[2017-10-10] MEDS: CHOLECALCIFEROL VIT D3 1,000 UNITS TAB PO SCH (13:09)
[2017-10-10] MEDS ORDERED: NS 1,000 ML IV ONE (15:32)
[2017-10-10] MEDS ORDERED: METOCLOPRAMIDE 10 MG/2 ML VIAL ONE (16:22)
[2017-10-10] MEDS ORDERED: ONDANSETRON 4 MG/2 ML VIAL ONE (16:22)
[2017-10-10] MEDS: HYDROCODONE/APAP 10/325 TAB PO PRN ×2 (16:32→21:46)
[2017-10-10] MEDS: CYCLOBENZAPRINE 10 MG TAB PO PRN ×2 (16:33→23:32)
[2017-10-10] MEDS ORDERED: BISACODYL 10 MG SUPP PR PRN (16:35)
[2017-10-10] MEDS ORDERED: LACTULOSE 20 GM/30 ML UDCUP PO PRN (16:35)
[2017-10-10] MEDS ORDERED: MAGNESIUM HYDROXIDE 30 ML UDCUP PO PRN (16:35)
[2017-10-10] MEDS: POLYETHYLENE GLYCOL 3350 17 GM PKT PO SCH (16:51)
[2017-10-10] MEDS: SENNOSIDES/DOCUSATE SODIUM TAB PO SCH (21:45)
[2017-10-10] MEDS: PANTOPRAZOLE SODIUM 40 MG TAB PO SCH (21:46)
[2017-10-10] MEDS: LISINOPRIL/HCTZ 10/12.5 MG 1 EA TAB PO SCH (21:47)
[2017-10-11] MEDS: HYDROCODONE/APAP 10/325 TAB PO PRN ×4 (01:53→14:24)
[2017-10-11] MEDS: GABAPENTIN 300 MG CAP PO SCH ×3 (06:11→16:35)
[2017-10-11] MEDS: CYCLOBENZAPRINE 10 MG TAB PO PRN (08:54)
[2017-10-11] MEDS: POLYETHYLENE GLYCOL 3350 17 GM PKT PO SCH (08:54)
[2017-10-11] MEDS: CHOLECALCIFEROL VIT D3 1,000 UNITS TAB PO SCH (08:54)
[2017-10-11] MEDS: FERROUS SULFATE 325 MG TAB PO SCH (08:54)
[2017-10-11] MEDS: SENNOSIDES/DOCUSATE SODIUM TAB PO SCH (08:54)
--- NOTE | 2017-10-11 11:56 | HOSPPROG ---
Hospitalist Progress Note Assessment/Plan: 67 yo F w/ chronic pain, FM, and HTN presents with acute on chronic back pain. * Acute on chronic back pain -due to sacral insufficiency fractures -patient did not sustain a fall -appreciate neurosurgery seeing her -last DEXA scan show osteopenia in 2012/ recommend a repeat one for f/u care -she has stenosis at L4-L5 contributing to her pain *sacral insufficiency fx -sacro-plasty / pain is possibly better but ongoing * HTN - Continue home meds *Plan:dc home with f/u with Dr Poole and with a pain specialist Subjective: Alysa is feeling well enough to go home. Objective: Vital Signs Temp Pulse Resp BP Pulse Ox 36.9 C 77 16 121/79 H 96 10/11/17 07:44 10/11/17 07:44 10/11/17 07:44 10/11/17 07:44 10/11/17 07:44 10/10/17 10/11/17 10/12/17 05:59 05:59 05:59 Intake Total 500 Output Total 850 55 Balance -850 445 PT 14.1 SEC (12.0-15.0) 10/09/17 10:30 INR 1.07 (0.83-1.16) 10/09/17 10:30 - Physical Exam Constitutional: obese, uncomfortable Eyes: PERRL Ears, Nose, Mouth, Throat: hearing normal Respiratory: no respiratory distress Skin: warm Musculoskeletal: generalized weakness Neurologic: AAOx3 Psychiatric: interacting appropriately ICD10 Worksheet Patient Problems: Problems Problem Status Onset Chronic lumbar pain Acute Lumbar degenerative disc disease Acute Lumbar radiculopathy, acute Acute Lumbar stenosis Acute Sacral fracture Acute
[2017-10-11 12:06] VITALS: BP 100/67
--- NOTE | 2017-10-11 12:06 | PDIAF ---
- Diagnosis Diagnosis: bilateral sacral fractures Code Status: Full Code - Medication Management Discharge Medications: Medications to Continue on Transfer Omeprazole Magnesium [Prilosec Otc] 20 mg PO HS 09/30/12 [Last Taken 10/07/17] Gabapentin [Neurontin 300 MG (*)] 600 mg PO QID 03/22/15 [Last Taken 10/08/17 18 :00] Lisinopril/Hctz 10/12.5 mg [Zestoretic/Prinzide 10/12.5MG (*)] 1 ea PO HS [Last Taken 10/07/17] HYDROcodone/APAP 10/325 [[place] 10/325 (*)] 2 tab PO Q4-6PRN PRN 05/26/16 [Last Taken 10/08/17 18:00] Acetaminophen/ASA/Caffeine [Excedrin Tablet (*)] 1 each PO DAILY PRN 03/30/17 [ Last Taken 09/11/17] Acyclovir 800 mg PO DAILY PRN 03/30/17 [Last Taken 08/12/17] Cyclobenzaprine [Flexeril 10 MG (*)] 10 mg PO TID PRN 03/30/17 [Last Taken 09/10] Ibuprofen [Motrin (*)] 800 mg PO BID 03/30/17 [Last Taken 10/08/17 09:00] Cholecalciferol Vit D3 [Vitamin D3 (*)] 1,000 units PO DAILY 10/09/17 [Last Taken Unknown] Ferrous Sulfate [Ferrous Sulf 325 MG (*)] 325 mg PO DAILY 10/09/17 [Last Taken Unknown] Multivitamins [Multivitamin (*)] 1 each PO DAILY 10/09/17 [Last Taken Unknown] Melatonin [Melatonin 3 MG (*)] 3 - 6 mg PO HS PRN tab 10/11/17 [Last Taken Unknown] Polyethylene Glycol 3350 [Miralax 17 gm (*)] 17 gm PO DAILY pkt 10/11/17 [Last Taken Unknown] Sennosides/Docusate Sodium [Senokot-S] 1 - 2 tab PO BID tab 10/11/17 [Last Taken Unknown] Discharge Medications: Refer to the Discharge Home Medication list for PRN reason. - Orders Services needed: Home Care, Physical Therapy, Occupational Therapy Home Care Face to Face: I certify that this patient was under my care and that I had the required [id number] encounter meeting the encounter requirements on the discharge day. My findings support the fact that the patient is homebound as defined in Home Care Face to Face Continued: CMS Chapter 7 Medicare Benefits Manual 30.1.1 , The condition of the patient is such that there exists a normal inability to leave home and consequently, leaving home would require a considerable and taxing effort. Diet Recommendation: no restrictions on diet Diet Texture: Regular Texture Diet Additional Instructions: WBAT, recommending physical and occupational therapy work with you for Core strengthening. If you want another PCP , Dr Caity Torres is a good primary care doctor Follow up with the pain doctor that Dr Poole recommended No twisting or heavy lifting (more than 10 lbs) until cleared by your PCP Try Melatonin for sleep at night if you have further back issues, call Dr Kilpatrick's office for f/u if you become incontinent of urine or stool, go to the ER - Follow Up Care Current Providers and Referrals: Hermilo Kilpatrick MD [Medical Doctor] - Jelena Poole MD [Primary Care Provider] - As per Instructions TERE NEWTON [Medical Doctor] - As per Instructions
--- NOTE | 2017-10-11 13:41 | GDS ---
[f rep st] DISCHARGE SUMMARY DISCHARGE DIAGNOSES: 1. Bilateral sacral fractures. 2. Acute pain on chronic pain. 3. Hypertension. CONSULTATION: Juan Antonio Luz, physician carpenter assistant with neurosurgical services. HISTORY OF PRESENT ILLNESS: Briefly, the patient is a 67-year-old woman who has chronic back pain, who presented to the emergency room with acute back pain. She had imaging performed that showed an S2 sacral insufficiency fracture. Also, it is noted that she has stenosis at L4-L5. She was seen and evaluated by Dr. Smiley, and on October 10, she had a bilateral CT-guided sacroplasty. Initially, this gave her good results, but she is having some ongoing pain today. She will further follow up with a chronic pain physician in the outpatient setting, and I have given her a name of a the back surgeon. HOSPITAL COURSE: 1. Bilateral insufficiency fracture. She is status post a sacroplasty. Pain is slightly better, not resolved, but better than on admission. 2. Acute on chronic back pain. This is due to sacral insufficiency fracture. She also has stenosis at L4-L5 contributing to her pain. She had a DEXA scan in 2012 that showed osteopenia. She should get a repeat DEXA scan when she follows up with her primary care provider. 3. Hypertension, stable. DISCHARGE CONDITION: Stable. Blood pressure is 100/67, heart rate of 94, respiratory rate of 18, O2 saturation on room air 91%, temperature 36.9 Celsius. DISCHARGE MEDICATIONS: Please see the EMR. DISCHARGE INSTRUCTIONS: 1. Recommending she stopped taking her long-acting oxy, which was discontinued by her PCP. 2. Weightbearing as tolerated. I have ordered physical therapy and occupational therapy. 3. No twisting or bending or heavy lifting. 4. Try melatonin at night for sleep. 5. If she becomes incontinent of urine or stool, to return to the emergency room immediately. Greater than 30 minutes discharging and coordinating her care. Copy requested to: Dr. Poole /[id number]/MODL MTDD
--- NOTE | 2017-10-11 16:50 | ASMTCMCOM ---
CM Note CM Note Notes: OT rec SNF, PT rec HHC/SNF. Pt declines SNF and [facility] can provide HHC PT/OT. Pt reports she has her sister and friends to assist at home. Pt medically stable for d/c with [facility], orders sent in [employer]. Pt family to transport home. Date Signed: 10/11/2017 04:50 PM Electronically Signed By:NICK Huynh
--- NOTE | 2017-10-13 09:09 | ASDISCHSUM ---
Discharge Information Plan Status:Home with Home Health Medically Cleared to Leave: Discharge Date:10/11/2017 06:03 PM D/C Disposition: ADT [facility] Date:10/11/2017 11:00 AM Transportation at D/C: Discharge Delay Reason: Follow-Up Date:10/11/2017 11:00 AM Discharge Slot: Final Diagnosis: Placement Information Referral Type:*Home Health Care Services Referral ID:[id number] Provider Name:[facility] [place] Address 1:[address] [place] [address] Address 2: City:[place] Selection Factors: State:[place] Patient Contact Information Contact Name:NEAL Relationship:Son Address: City: [place] [facility] Phone: [facility] Code: Email: Financial Information Financial Class:Medicare Primary Plan Desc:MEDICARE INPATIENT Primary Plan Number:[id number] Secondary Plan Desc[place] [place] [facility] [place] Secondary Plan Number:[id number] Assessment Information [facility] CM Progress Note CM Note CM Note Notes: Patient admitted for acute on chronic back pain with chronic opiate use. She has been seen by neurosurgery who recommend a S2 sacralplasty with IR. NS will see her again after this procedure. Patient lives independently. We can have PT/OT eval if necessary, and Case Management will assist with any discharge needs. Date Signed: 10/09/2017 12:36 PM Electronically Signed By:Jovita Redman RN [facility] CM Progress Note CM Note CM Note Notes: OT rec SNF, PT rec HHC/SNF. Pt declines SNF and [facility] can provide HHC PT/OT. Pt reports she has her sister and friends to assist at home. Pt medically stable for d/c with [facility], orders sent in [employer]. Pt family to transport home. Date Signed: 10/11/2017 04:50 PM Electronically Signed By:NICK Huynh Intervention Information Intervention Type:*BROWN-Signed Date of Service:10/09/2017 10:35 AM Patient Type:Observation Staff Member:Debora Escalante Hours: Discipline: Severity: Comment: Intervention Type:*IM-Signed Date of Service:10/11/2017 12:27 PM Patient Type:Inpatient Staff Member:Debora Escalante Hours: Discipline: Severity: Comment:
== END 2017-10-11 18:03 | disposition home health service (06) | DRG 517 ==
LOC: OBSVTOIN 10-09 01:47 → F2W 10-09 02:39 → F3N 10-09 15:59
PROVIDERS: ADMIT Student in an Organized Health Care Education/Training Program; ATTEND Student in an Organized Health Care Education/Training Program
PROC: 0SU Lower Joints, Supplement (ICD-10-PCS; principal; 2017-10-10 09:00)
PROC: 0SU Lower Joints, Supplement (ICD-10-PCS; principal; 2017-10-10 09:00)
DX: M84.48XA Pathological fracture, other site, initial encounter for fracture (principal); G89.29 Other chronic pain; I10 Essential (primary) hypertension; M48.061 Spinal stenosis, lumbar region without neurogenic claudication; G62.9 Polyneuropathy, unspecified; Z87.891 Personal history of nicotine dependence; Z96.653 Presence of artificial knee joint, bilateral
CPT/HCPCS: 96374; 97161-GP; 97166-GO; G8978-GP-CJ; G8979-GP-CI; G8987-GO-CJ; G8988-GO-CI; J0330; J0690; J1100; J2250; J2270; J2405; J2704; J2765; J3010

== ENCOUNTER → 2017-10-24 | Outpatient (CLI) | payer OTHER | LOC: FIMAGING 15:03 | PROVIDERS: ATTEND Neurological Surgery | DX: M41.84 Other forms of scoliosis, thoracic region (principal); M51.36 Other intervertebral disc degeneration, lumbar region; M46.97 Unspecified inflammatory spondylopathy, lumbosacral region; G56.01 Carpal tunnel syndrome, right upper limb; Z98.890 Other specified postprocedural states ==

== ENCOUNTER → 2017-10-30 | Outpatient (CLI) | payer OTHER | LOC: BRMIMAGING 13:27 | PROVIDERS: ATTEND Internal Medicine | DX: Z13.820 Encounter for screening for osteoporosis (principal); M81.0 Age-related osteoporosis without current pathological fracture; N95.9 Unspecified menopausal and perimenopausal disorder ==

== ENCOUNTER → 2017-11-05 | Outpatient (CLI) | payer OTHER ==
[~2017-11-05] MED LIST changes: +CITRATE DEXTROSE SOLN 500 ML BAG ONE; -IOPAMIDOL (ISOVUE-M 300) 15 ML VIAL ONE; -TRIAMCINOLONE ACETONIDE 200 MG/5 ML MDV IM ONE
== END ==
LOC: CIMAGING 13:02
PROVIDERS: ATTEND Neurological Surgery
DX: Z09 Encounter for follow-up examination after completed treatment for conditions other than malignant neoplasm (principal); M43.16 Spondylolisthesis, lumbar region; M51.16 Intervertebral disc disorders with radiculopathy, lumbar region
CPT/HCPCS: 72100; J7060

== ENCOUNTER → 2018-02-01 | Outpatient (CLI) | payer OTHER | LOC: CIMAGING 15:12 | PROVIDERS: ATTEND Family Medicine | DX: K44.9 Diaphragmatic hernia without obstruction or gangrene (principal) | CPT/HCPCS: 36415-PO; 71046-PO ==

== ENCOUNTER 2018-02-17 15:31 | Emergency (ER) | payer OTHER ==
--- NOTE | 2018-02-17 15:50 | EDPHY ---
H & P Time Seen by Provider: 02/17/18 15:40 HPI/ROS: CHIEF COMPLAINT: Itchy red eyes History by patient HISTORY OF PRESENT ILLNESS: 67-year-old woman presents complaining of 2 days of itchy, stinging and burning bilateral eyes as well as thick white discharge coming from both eyes but the left greater than the right. Patient states she began taking mupirocin ointment in her nose on in preparation for back surgery next week. Her eye symptoms began a day later. She has not been putting ointment in her eyes, only in Her nose. She denies any fever chills or difficulty with vision. She denies any photophobia. She states she had cataract surgery in her vision it has been fine since. She has had a runny nose and thinks she is getting a cold. Her granddaughter also had a cold but did not have any eye symptoms. She denies any other ill contacts. She tried using contact lens solution to rinse the discharge out of her eyes yesterday with minimal relief. She denies any history of allergies. She does not wear glasses or contact lenses. REVIEW OF SYSTEMS: As in HPI, and all other systems reviewed and are negative Smoking Status: Former smoker Physical Exam: General: Alert, well-appearing Head: Normocephalic, atraumatic EOMI Pupils: Equal round reactive to light Lids: Within normal limits, inverted, no foreign bodies Conjunctiva: Mild erythema, no discharge apparent at this time, minimal chemosis, no ciliary flush Slit-lamp exam: Fluorescein exam negative, cornea clear, anterior chamber no cell and flare Constitutional: Initial Vital Signs Temperature (C) 36.6 C 02/17/18 15:35 Heart Rate 79 02/17/18 15:35 Respiratory Rate 20 02/17/18 15:35 Blood Pressure 156/96 H 02/17/18 15:35 O2 Sat (%) 93 02/17/18 15:35 O2 Delivery Mode Room Air Allergies/Adverse Reactions: No Known Allergies Allergy (Verified 10/08/17 22:41) Home Medications: Medication Instructions Recorded Omeprazole Magnesium [Prilosec Otc] 20 mg PO HS 09/30/12 Gabapentin [Neurontin 300 MG (*)] 600 mg PO QID 03/22/15 HYDROcodone/APAP [[place] 2 tab PO Q4-6PRN PRN 05/26/16 10/325 (*)] Acetaminophen/ASA/Caffeine 1 each PO DAILY PRN 03/30/17 [Excedrin Tablet (*)] Acyclovir 800 mg PO DAILY PRN 03/30/17 Cyclobenzaprine [Flexeril 10 MG 10 mg PO TID PRN 03/30/17 (*)] Ibuprofen [Motrin (*)] 800 mg PO BID 03/30/17 Cholecalciferol Vit D3 [Vitamin D3 1,000 units PO DAILY 10/09/17 (*)] Ferrous Sulfate [Ferrous Sulf 325 325 mg PO DAILY 10/09/17 MG (*)] Multivitamins [Multivitamin (*)] 1 each PO DAILY 10/09/17 Melatonin [Melatonin 3 MG (*)] 3 - 6 mg PO HS PRN tab 10/11/17 Polyethylene Glycol 3350 [Miralax 17 gm PO DAILY pkt 10/11/17 17 gm (*)] Sennosides/Docusate Sodium 1 - 2 tab PO BID tab 10/11/17 [Senokot-S] Erythromycin 0.5% 1 olga EACHEYE Q2H #1 opht.oint 02/17/18 Lisinopril 02/17/18 MDM/Departure - MDM ED Course/Re-evaluation: 67-year-old woman presents with itchy red eyes and discharge consistent with conjunctivitis, likely viral, especially given her recent URI symptoms however she is very concerned about possibly infection going into her lumbar spine surgery next week and so will go ahead and treat her with topical erythromycin for her eyes to prevent development of bacterial conjunctivitis. Patient understands and is agreeable to this plan. - Depart Disposition: Home, Routine, Self-Care Clinical Impression: Acute conjunctivitis of both eyes Qualifiers: Acute conjunctivitis type: unspecified Qualified Code(s): H10.33 - Unspecified acute conjunctivitis, bilateral Condition: Good Instructions: Conjunctivitis (ED) Additional Instructions: You were seen by Dr. Lesia Bales today. You have conjunctivitis. We will treat you with antibiotic ointment. This is contagious. Continue to use your mupirocin ointment in her nose. Follow up with her surgeon and her primary care doctor as scheduled. Return for any worsening or new concerns. Prescriptions: Erythromycin 0.5% 1 olga EACHEYE Q2H #1 opht.oint Referrals: Abhi Bourne, [Primary Care Provider] - As per Instructions
[2018-02-17] MEDS ORDERED: PROPARACAINE 0.5% 15 ML OPHT DROP ONE (15:52)
[2018-02-17 16:23] VITALS: BP 154/88
== END 2018-02-17 16:19 | disposition home or self-care (01) ==
LOC: CED 15:31
DX: H10.33 Unspecified acute conjunctivitis, bilateral (principal); Z87.891 Personal history of nicotine dependence

== ENCOUNTER 2018-03-05 17:29 | Emergency (ER) | payer OTHER ==
[2018-03-05] MEDS ORDERED: NS 1,000 ML IV ONE (18:08)
[2018-03-05] MEDS ORDERED: LIDOCAINE 4%/MENTHOL 1% PATCH TD ONE (18:08)
[2018-03-05] MEDS ORDERED: ONDANSETRON 4 MG/2 ML VIAL IVP ONE ×2 (18:09→20:00)
[2018-03-05] MEDS ORDERED: ACETAMINOPHEN 500 MG TAB PO ONE (18:09)
[2018-03-05] MEDS ORDERED: LISINOPRIL 20 MG TAB PO ONE (18:41)
[2018-03-05 19:14] LABS: PLATELET COUNT 291 10^3/uL (150-400)
[2018-03-05] MEDS ORDERED: ONDANSETRON 4MG PREPACK#2 BTL TAKEHOME ONE (20:03)
--- NOTE | 2018-03-05 20:14 | EDPHY ---
H & P Time Seen by Provider: 03/05/18 17:40 HPI/ROS: This patient presents with chief complaint of nausea. Her occupational therapist also noticed today that she had hypertension with diastolic pressure above 100 despite compliance with her lisinopril 10 mg a day. She came in to be evaluated for combination of her nausea which he relates is been present over the past 48 hr or so and the hypertension. She feels that the nausea may be attributable to the Dilaudid that she has a taking in addition to her baseline hydrocodone 10s since having a back surgery with L4-5 fusion 2 weeks ago without complication in [place] at the [facility] by Dr. Shravan Kelly. She notes the temporal association between taking the Dilaudid and feeling the nausea. She took Dilaudid -4 mg orally at 10:00 a.m. Today and has felt nauseous since that time. She has not taken any Dilaudid since but has taken her customary 10 mg hydrocodone tabs total of 4 of them today which she also took prior to having her back surgery. She saw Dr. Kelly in follow-up yesterday in his orthopedic clinic and he felt that the patient was doing well at that time with the exception that she seemed slightly weak and shaky to him. She reports that her back pain as 4/10 at this time and similar to her baseline. ROS: Constitutional: No fevers or chills. HEENT: No URI complaints or or other complaints. Neurologic: No headache. No confusion. Pulmonary: No cough shortness of breath Cardiovascular: She has a mild ankle swelling since the surgery that her back surgeon feels is typical in she reports is improving. She has no chest pain heart palpitations. No lightheadedness. GI: Nausea but no vomiting exception of once today when she purposely gagged herself thinking that vomiting might resolve the nausea. She did vomit once from the gag but reports ongoing nausea other after anyway. No hematemesis with the gag. She reports a stool that seemed somewhat tarry to her today. She denies constipation but reports that she has a bowel movement about once every 3 days which was typical of her pattern prior to the surgery. No hematochezia. : No flank pain or hematuria. No dysuria. Hematologic: She also feels that she might be slightly more pale than usual. She reports that she has chronic anemia is uncertain of the etiology of that anemia. 10 point review of symptoms is performed and otherwise negative with exception of pertinent positives and negatives listed in HPI and ROS Past Medical/Surgical History: L4-5 fusion 2 weeks ago without complication Hepatitis C Arthritis Chronic normocytic anemia Bilateral knee replacement Cholecystectomy The patient reports that she has had nocturnal hypoxia noted during previous hospitalizations but has never had a sleep study. Smoking Status: Former smoker Physical Exam: General Appearance: Alert, no distress. Eyes: Pupils equal and round no pallor or injection. ENT, Mouth: Mucous membranes moist. Respiratory: There are no retractions, lungs are clear to auscultation. Cardiovascular: Regular rate and rhythm. No murmur gallop rub. No significant pedal edema. Gastrointestinal: Abdomen is soft and nontender, no masses, bowel sounds normal. Back: She has a clean dry intact midline lumbar surgical scar with no erythema , fluctuance. She has mild midline back tenderness that she states is baseline for her since the surgery. She retains good range of motion. Neurological: GCS 15. She maintains normal light touch sensory exam bilateral lower extremities and 5/5 strength in great toe dorsiflexion plantar flexion bilaterally. Rectal exam: Small hemorrhoids with no thrombosed hemorrhoids and no active bleeding. Stool is light brown and heme negative on Hemoccult testing Skin: Warm and dry, no rashes. Musculoskeletal: Neck is supple nontender. Extremities are symmetrical, full range of motion. Psychiatric: Mood and affect are normal DIFFERENTIAL DIAGNOSIS: After history and physical exam differential diagnosis was considered for nausea from opiates, hypertensive urgency versus emergency verses increase in baseline hypertension from postop pain, UTI, myocardial ischemic disease, acute on chronic anemia, GI bleed Constitutional: Initial Vital Signs Temperature (C) 37.1 C 03/05/18 17:44 Heart Rate 70 03/05/18 17:44 Respiratory Rate 18 03/05/18 17:44 Blood Pressure 194/115 H 03/05/18 17:44 O2 Sat (%) 95 03/05/18 17:44 O2 Delivery Mode Room Air O2 (L/minute) 2 Allergies/Adverse Reactions: No Known Allergies Allergy (Verified 03/05/18 17:35) Home Medications: Medication Instructions Recorded Omeprazole Magnesium [Prilosec Otc] 20 mg PO HS 09/30/12 Gabapentin [Neurontin 300 MG (*)] 600 mg PO QID 03/22/15 HYDROcodone/APAP 325 [[place] 2 tab PO Q4-6PRN PRN 05/26/16 10325 (*)] Acetaminophen/ASA/Caffeine 1 each PO DAILY PRN 03/30/17 [Excedrin Tablet (*)] Acyclovir 800 mg PO DAILY PRN 03/30/17 Cyclobenzaprine [Flexeril 10 MG 10 mg PO TID PRN 03/30/17 (*)] Ibuprofen [Motrin (*)] 800 mg PO BID 03/30/17 Cholecalciferol Vit D3 [Vitamin D3 1,000 units PO DAILY 10/09/17 (*)] Ferrous Sulfate [Ferrous Sulf 325 325 mg PO DAILY 10/09/17 MG (*)] Multivitamins [Multivitamin (*)] 1 each PO DAILY 10/09/17 Melatonin [Melatonin 3 MG (*)] 3 - 6 mg PO HS PRN tab 10/11/17 Polyethylene Glycol 3350 [Miralax 17 gm PO DAILY pkt 10/11/17 17 gm (*)] Sennosides/Docusate Sodium 1 - 2 tab PO BID tab 10/11/17 [Senokot-S] Erythromycin 0.5% 1 olga EACHEYE Q2H #1 opht.oint 02/17/18 Lisinopril 02/17/18 HYDROmorphone HCL [Dilaudid 4 mg 03/05/18 (*)] Hydrochlorothiazide 03/05/18 Lidocaine [Lidoderm] 1 each TP DAILY #15 adh..patch 03/05/18 Methocarbamol [Robaxin 500 mg (*)] 03/05/18 Ondansetron Odt [Zofran Odt] 4 - 8 mg PO Q4PRN PRN #4 tab 03/05/18 MDM/Departure - MDM Medications Given: Discontinued Medications Acetaminophen (Tylenol) 1,000 mg PO EDNOW ONE Stop: 03/05/18 18:10 Last Admin: 03/05/18 18:17 Dose: 1,000 mg Sodium Chloride (Ns) 1,000 mls @ 0 mls/hr IV ONCE ONE; Wide Open PRN Reason: Protocol Stop: 03/05/18 18:09 Last Admin: 03/05/18 18:18 Dose: 1,000 mls Lisinopril (Zestril) 10 mg PO EDNOW ONE Stop: 03/05/18 18:42 Last Admin: 03/05/18 18:47 Dose: 10 mg Miscellaneous Information (Patch Removal) 1 ea TD DAILY21 NOE Stop: 09/01/18 20:59 Last Admin: 03/05/18 18:51 Dose: 1 ea Miscellaneous Medication (Icy Hot Lidocaine/Menthol 4%/1% Patch) 1 patch TD EDNOW ONE Stop: 03/05/18 18:09 Last Admin: 03/05/18 18:17 Dose: 1 patch Ondansetron HCl (Zofran) 4 mg IVP EDNOW ONE Stop: 03/05/18 18:10 Last Admin: 03/05/18 18:17 Dose: 4 mg Ondansetron HCl (Zofran) 4 mg IVP EDNOW ONE Stop: 03/05/18 20:01 Last Admin: 03/05/18 20:09 Dose: 4 mg Ondansetron HCl (Zofran Odt 4 Mg Prepack#2) 1 btl TAKEHOME EDNOW ONE Stop: 03/05/18 20:04 Last Admin: 03/05/18 20:54 Dose: 1 btl ED Course/Re-evaluation: IV normal saline bolus Zofran IV 4 mg x2 with relief of nausea The patient drifted off to sleep while the clinic and dropped down to an O2 sat of 80% on room air with a good waveform. She is given a Lidoderm patch and Tylenol with some relief of her back pain. She is given additional 10 mg of lisinopril with normalization of her BP thereafter Review of her labs reveals anemia consistent with prior H&H on review of prior visits. While in initial POC basic metabolic panel revealed a potassium of 2.8 a follow- up i-STAT reveal normal potassium of 3.4. Discussion: Patient presents with nausea that he believes attributable to her opiates-the additional Dilaudid that she has been taking postop. She had good analgesia here with addition of Lidoderm patch and Tylenol. Patient is enthusiastic about stopping her Dilaudid and continue her baseline hydrocodone/ Tylenol. She had significant nocturnal hypoxia here when she fell sleep I think warrants nighttime nasal cannula O2 with plan to proceed with outpatient sleep study through her primary care physician. All she had significant hypertension, no evidence of end-organ injury and she responded well to an additional dose of lisinopril. Will plan to send her home with a 20 mg dose of lisinopril day rather than her 10 mg dose, taper off the Dilaudid, add Lidoderm patch and Tylenol for pain control and follow up with her primary care physician and orthopedic physician. She understands need to return emergency department should she develop worsening symptoms despite the treatment plan. - Depart Disposition: Home, Routine, Self-Care Clinical Impression: Nausea, Nocturnal hypoxemia Hypertension Qualifiers: Hypertension type: essential hypertension Qualified Code(s): I10 - Essential ( primary) hypertension Condition: Good Instructions: Ondansetron (By mouth), Acute Nausea and Vomiting (ED), Hypertension (ED) Additional Instructions: Diagnoses: 1. Nausea 2. Hypertension 3. Chronic anemia 4. hypoxemia at rest (nocturnal) Plan: Double your lisinopril dose to 20 mg a day Drink plenty fluids Try to taper down on your Dilaudid does while continuing your regular hydrocodone dose. Use Tylenol and Lidoderm patches in place the Dilaudid as tolerated. Oxygen at night - 2L/min. NC zofran for nausea if needed. Continue stool softeners We recommend that you have a sleep study to evaluate for potential sleep apnea as you had a low oxygen saturation while sleeping while here in the emergency department. Call your primary care physician to arrange follow-up appointment for sometime within the next 3-7 days for further evaluation. Return emergency department for any significant worsening of her symptoms despite the treatment plan. Prescriptions: Lidocaine [Lidoderm] 1 each TP DAILY #15 adh..patch Ondansetron Odt [Zofran Odt] 4 - 8 mg PO Q4PRN PRN #4 tab PRN Reason: Vomiting Referrals: Abhi Bourne DO [Primary Care Provider] - As per Instructions
[2018-03-05] MEDS ORDERED: PATCH REMOVAL 1 EA PATCH TD SCH (21:00)
[2018-03-05 22:05] VITALS: BP 149/89
--- NOTE | 2018-03-05 22:24 | CPEKG ---
Test Reason : OPEN Blood Pressure : / mmHG Vent. Rate : 068 BPM Atrial Rate : 068 BPM P-R Int : 183 ms QRS Dur : 098 ms QT Int : 428 ms P-R-T Axes : 043 044 051 degrees QTc Int : 456 ms Sinus rhythm Confirmed by Juan Antonio Hawley ([id number]) on 03/05/2018 10:24:12 PM Referred By: Confirmed By:Juan Antonio Hawley
== END 2018-03-05 21:23 | disposition home or self-care (01) ==
LOC: CED 17:29
DX: R11.0 Nausea (principal); R09.02 Hypoxemia; I10 Essential (primary) hypertension; E86.9 Volume depletion, unspecified; D64.9 Anemia, unspecified; M54.5 Low back pain; B19.20 Unspecified viral hepatitis C without hepatic coma; Z87.891 Personal history of nicotine dependence; Z96.653 Presence of artificial knee joint, bilateral; Z98.890 Other specified postprocedural states; Z98.1 Arthrodesis status
CPT/HCPCS: 93005; 96361; 96374; 96375; 96376; 99284; J2405; 80048-PO; 82435-PO; 82565-PO; 82947-PO; 84132-PO; 84295-PO; 84520-PO; 85014-PO

== ENCOUNTER → 2018-05-22 | Outpatient (CLI) | payer OTHER | LOC: CIMAGING 16:30 | PROVIDERS: ATTEND Family Medicine | DX: M25.552 Pain in left hip (principal); M47.816 Spondylosis without myelopathy or radiculopathy, lumbar region; M46.96 Unspecified inflammatory spondylopathy, lumbar region; Z98.890 Other specified postprocedural states | CPT/HCPCS: 72100-PO; 73502-PO ==